=== PATIENT | female | born 1990 | race Caucasian/White ===

== ENCOUNTER 2017-03-14 02:48 | Observation (INO) | payer SELFPAY ==
--- NOTE | 2017-03-14 05:42 | SOAPPROG ---
SOAP Progress Note Assessment/Plan: Assessment: 26 yo G?P3 @ 34 weeks gestation sent from [facility] for evaluation of abdominal pain. Category 1 heart rate tracing. No contractions on tocometer. Cervix closed. No acute abdominal pain at time of evaluation. Plan: Discharge back to [facility]. Patient will follow-up for care to established provider or as otherwise arranged by [facility]. 03/14/17 05:38 Subjective: Patient report vague abdominal pain. She denies loss of fluid, vaginal bleeding. She admits to movement. She denies nausea, vomiting, diarrhea, constipation. She is a patient at [facility] (a nearby addiction/rehab center). All current and prior history is per patient. She is not overly cooperative in providing pertinent history. Objective: VSS NAD Lungs Clear to auscultation Heart RRR Abdomen soft/non-tender/bowel sounds present/gravid/ size c/w 35 weeks gestation Pelvis: Cervical exam = closed/thick/high/unlabored Extremities: no swelling or edema in BLE FHR 120s category 1 [place] no contractions - Time Spent With Patient Time Spent With Patient: 15 minutes - Pending Discharge Pending Discharge Within 24 Hours: Yes Pending Discharge Date: 03/15/17 Pending Discharge Time: 11:00 ICD10 Worksheet Patient Problems: Problems Problem Status Onset Abdominal pain affecting Acute Abdominal pain affecting , antepartum Acute - ICD10 Problem Qualifiers (1) Abdominal pain affecting (2) Abdominal pain affecting , antepartum
== END 2017-03-14 06:00 ==
LOC: FLD 02:48
PROVIDERS: ADMIT Advanced Practice Midwife; ATTEND Obstetrics & Gynecology Gynecology
DX: O26.893 Other specified pregnancy related conditions, third trimester (principal); R10.9 Unspecified abdominal pain; Z3A.34 34 weeks gestation of pregnancy
CPT/HCPCS: G0378

== ENCOUNTER → 2017-04-05 | Outpatient (CLI) | payer SELFPAY | LOC: FIMAGING 13:38 | DX: O99.323 Drug use complicating pregnancy, third trimester (principal); F15.20 Other stimulant dependence, uncomplicated; Z3A.37 37 weeks gestation of pregnancy ==